=== PATIENT | female | born 1955 | race Caucasian/White ===

== ENCOUNTER 2020-06-15 06:39 | Outpatient (NON) | payer OTHER, SELFPAY ==
[2020-06-16 14:56] LABS: SARS-CoV-2 RNA PCR Positive
== END 2020-06-15 06:40 ==
LOC: ANHCOVIDDT 06:53
PROVIDERS: PCP Nurse Practitioner Family; Visit Provider Family Medicine
DX: U07.1 COVID-19 (principal)
CPT/HCPCS: 87635; C9803; U0003

== ENCOUNTER → 2020-07-13 13:33 | Outpatient (CLI) | payer OTHER, SELFPAY ==
--- NOTE | ~2020-07-13 | MM_ITS ---
EXAMINATION: MM screening sophie BI w chente HISTORY: Screening TECHNIQUE: Craniocaudal and mediolateral oblique 3-D tomosynthesis images were obtained and synthetic 2-D images were generated. CAD analysis was submitted and interpreted. COMPARISON: Comparison to multiple prior studies sequentially, with oldest reviewed study dated 08/2013. BREAST PARENCHYMAL COMPOSITION: There are scattered areas of fibroglandular density. FINDINGS: There is no evidence of suspicious mass, calcification, or architectural distortion to sugg est malignancy in either breast. There has been no suspicious interval change. IMPRESSION: 1. No mammographic evidence of malignancy. 2. Recommend routine screening mammography in one year. BI-RADS Category 1: Negative Reviewed, dictated and finalized at location A. MAKER
== END ==
PROVIDERS: PCP Nurse Practitioner Family; Visit Provider Nurse Practitioner Family
DX: Z12.31 Encounter for screening mammogram for malignant neoplasm of breast (principal)
CPT/HCPCS: 77063; 77067

== ENCOUNTER → 2021-06-01 13:42 | Outpatient (CLI) | payer MEDICARE, OTHER, SELFPAY ==
--- NOTE | ~2021-06-01 | CT_ITS ---
EXAMINATION: CT abdomen pelvis wo con DATE: 06/01/2021 13:57 INDICATION: Abdominal pain TECHNIQUE: Computed tomography (CT) of the abdomen and pelvis was performed without intravenous contr ast. The dose-length product (DLP) was 607.32 mGy-cm. Automated exposure control and iterative recons truction technique were employed. COMPARISON: None FINDINGS: Calcified nodules of the visualized lung bases are consistent with old granulomatous diseas e. The heart size is normal. A pacemaker lead ends in the right ventricle. Punctate calcifications in otherwise normal appearing liver and spleen likely represent healed granulomatous disease. The pancr eas, gallbladder, and adrenal glands are normal. The kidneys are unremarkable. There is calcified ath erosclerosis of the aorta and many of the other arteries. There is a 2.4 x 1.9 cm calcified mass in t he right mid abdomen adjacent to the cecum which abuts the medial aspect of the ascending colon just above the ileocecal valve. There appears to be surrounding desmoplastic reaction. There is mild lumba r spondylosis. IMPRESSION: 1. 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 Reviewed, dictated and finalized at location A. IMPRESSION: 1. Calcified mass of the right mid abdomen adjacent to the cecum, consistent wi th carcinoid versus sclerosing mesenteritis.
== END ==
PROVIDERS: PCP Nurse Practitioner Family; Visit Provider Nurse Practitioner Family
DX: R10.9 Unspecified abdominal pain (principal)
CPT/HCPCS: 74176

== ENCOUNTER 2021-11-15 15:11 | Emergency (ER) | payer MEDICARE, OTHER, SELFPAY ==
[2021-11-15 15:24] VITALS: BP 144/85; PULSE 78; RESP 18; TEMP 36.9; O2SAT 98
--- NOTE | 2021-11-15 15:25 | ED.EAR ---
HPI - Ear Problem General Chief complaint: Ear Stated complaint: rt ear pain Time Seen by Provider: 11/15/21 15:25 Source: patient Mode of arrival: ambulatory Limitations: no limitations History of Present Illness HPI Narrative: Michelle Mitchell is a 66 yo female with a PMH of high cholesterol, pacemaker, who comes with R ear pain and swelling x 1 day-fever, nausea vomiting diarrhea. Had ear infection past she is allergic to all penicillins and Keflex Related Data Home Medications Medication Instructions Recorded Confirmed rosuvastatin 10 mg PO DAILY 11/15/21 11/15/21 Allergies Allergy/AdvReac Type Severity Reaction Status Date / Time Penicillins Allergy Unknown RASH Verified 11/15/21 15:24 cephalexin [From Keflex] Allergy Rash Verified 11/15/21 15:25 Review of Systems Review of Systems: CONSTITUTIONAL: Denies fever, chills, sweats. EYES: Denies visual changes, redness, discharge. ENT: Denies rhinorrhea, congestion, sore throat, right otalgia. CARDIOVASCULAR: Denies chest pain, palpitations, edema. RESPIRATORY: Denies dyspnea, wheezing, cough GASTROINTESTINAL: Denies abdominal pain, nausea, vomiting, diarrhea. GENITOURINARY: Denies dysuria, hematuria, abnormal discharge SKIN: Denies rash or itching. NEUROLOGIC: Denies numbness, or focal weakness. PSYCHIATRIC: Denies anxiety or depression. [facility] Past Medical History Medical History (Updated 11/15/21 @ 15:36 by Shira Palmer CNP) Complete heart block High cholesterol Surgical History Surgical History (Updated 11/15/21 @ 15:31 by Shira Palmer CNP) History of permanent cardiac pacemaker placement Social History Social History (Updated 11/15/21 @ 15:32 by Shira Palmer CNP) Smoking status: Never smoker Alcohol intake: never Comments At time of signature, I agree with nursing past medical, surgical, social and family history. There is no relevant family history pertinent to the presenting complaint. Exam Narrative: GENERAL: This is a well-nourished, well-developed patient, in mild distress. HEAD: normocephalic, atraumatic. EYES: Sclera clear/white. Vision is grossly intact. EARS: External ears normal, right ear canal appears tender and erythematous. No drainage hearing grossly intact. NOSE: External nose normal without nasal discharge, nares without redness, no rhinorrhea. THROAT: Mucous membranes moist, NECK: Neck supple, non-tender CARDIOVASCULAR: Regular rate and rhythm without murmurs, gallops, or rubs. RESPIRATORY: Clear to auscultation. Breath sounds equal bilaterally. No wheezes, rales, or rhonchi. GASTROINTESTINAL: Abdomen soft, SKIN: warm, intact with no suspicious lesions or rash, good texture and turgor. NEURO: awake, alert, and oriented to person, place and time. There were no obvious focal neurologic abnormalities. Steady gait EXTREMITIES: Normal range of motion. BACK: Nontender without deformity Course Course Emergency Course: Patient comes with right ear canal pain Started on polymyxin eardrops Level of Care: Express Care Visit Vital Signs Vital signs: Vital Signs Temperature 98.5 F 11/15/21 15:24 Pulse Rate 78 11/15/21 15:24 Respiratory Rate 18 11/15/21 15:24 Blood Pressure 144/85 H 11/15/21 15:24 Pulse Oximetry 98 11/15/21 15:24 Temperature 98.5 F 11/15/21 15:28 Pulse Rate 78 11/15/21 15:28 Respiratory Rate 18 11/15/21 15:28 Blood Pressure 144/85 H 11/15/21 15:28 Pulse Oximetry 98 11/15/21 15:28 Medical Decision Making Differential Diagnosis Differential Diagnosis: Has media versus otitis externa versus eustachian tube dysfunction Vital Signs Vital Signs: Vital Signs Temperature 98.5 F 11/15/21 15:24 Pulse Rate 78 11/15/21 15:24 Respiratory Rate 18 11/15/21 15:24 Blood Pressure 144/85 H 11/15/21 15:24 Pulse Oximetry 98 11/15/21 15:24 Temperature 98.5 F 11/15/21 15:28 Pulse Rate 78 11/15/21 15:28 Respiratory Rate 18
[2021-11-15 15:28] VITALS: BP 144/85; PULSE 78; RESP 18; TEMP 36.9; O2SAT 98
== END 2021-11-15 15:43 | disposition home or self-care (01) ==
PROVIDERS: Emergency Provider Nurse Practitioner; PCP Nurse Practitioner Family
DX: H60.311 Diffuse otitis externa, right ear (principal); E78.00 Pure hypercholesterolemia, unspecified; Z95.0 Presence of cardiac pacemaker
CPT/HCPCS: 99213; G0463

== ENCOUNTER 2022-09-09 08:15 | Emergency (ER) | payer MEDICARE, OTHER, SELFPAY ==
--- NOTE | 2022-09-09 08:18 | ED.GENADULT ---
HPI - General Adult General Chief complaint: Ear Stated complaint: foreign object in rt ear Time Seen by Provider: 09/09/22 08:18 Source: patient Mode of arrival: ambulatory Limitations: no limitations History of Present Illness HPI narrative: 67-year-old female patient presents to the [facility] with complaints of foreign body to the right ear. Patient states she was using a Q-tip to the right ear yesterday and when she pulled out the Q-tip the cot not the end of the Q-tip was gone. Patient states she does have some discomfort to the right ear but denies any actual pain at this time. Related Data Home Medications Medication Instructions Recorded Confirmed rosuvastatin 10 mg tablet 10 mg PO DAILY 11/15/21 11/15/21 Allergies Allergy/AdvReac Type Severity Reaction Status Date / Time Penicillins Allergy Unknown RASH Verified 09/09/22 08:28 cephalexin [From Keflex] Allergy Rash Verified 09/09/22 08:28 Review of Systems Review of Systems: CONSTITUTIONAL: Denies fever, chills, or sweats. EYES: Denies visual changes, redness, or discharge. ENT: Denies rhinorrhea, congestion, sore throat, Positive right otalgia. CARDIOVASCULAR: Denies chest pain, palpitations, or edema. RESPIRATORY: Denies cough or dyspnea. GASTROINTESTINAL: Denies abdominal pain, nausea, vomiting, or diarrhea. GENITOURINARY: Denies dysuria or hematuria. SKIN: Denies rash or itching. MUSCULOSKELETAL: Denies back pain, joint pain, or myalgia. NEUROLOGIC: Denies headache, numbness, or weakness. PSYCHIATRIC: Denies anxiety or depression. PMF[facility] Past Medical History Medical History Complete heart block High cholesterol Surgical History Surgical History History of permanent cardiac pacemaker placement Social History Social History Smoking status: Never smoker Alcohol intake: never Comments At the time of my signature I agree with nursing past medical history, surgical, social, and family history. There is no relevant family history pertinent to the presenting complaint. Exam Narrative: GENERAL: Well-appearing, well-nourished, and in no acute distress. HEAD: Normocephalic, atraumatic. EYES: PERRLA and EOMI. ENT: Nares clear, no rhinorrhea or epistaxis. Mucous membranes moist. small white foreign body noted to the right canal. The canal is very narrow and hard to visualized with the otoscope. NECK: Supple. No lymphadenopathy CHEST: Clear to auscultation. No respiratory distress. HEART: Regular rate and rhythm. No murmur heard. Normal peripheral pulses. ABDOMEN: Soft, nontender, nondistended, normal active bowel sounds. EXTREMITIES: Normal range of motion. No edema. SKIN: Warm, dry, no rash. NEURO: No focal deficits. Alert and oriented x3. Course Course Level of Care: Express Care Visit Vital Signs Vital signs: Vital Signs Temperature 36.7 C 09/09/22 08:28 Pulse Rate 80 09/09/22 08:28 Respiratory Rate 18 09/09/22 08:28 Blood Pressure 144/78 H 09/09/22 08:28 Pulse Oximetry 98 09/09/22 08:28 Oxygen Delivery Room Air 09/09/22 08:28 Temperature 36.7 C 09/09/22 08:28 Pulse Rate 80 09/09/22 08:28 Respiratory Rate 18 09/09/22 08:28 Blood Pressure 144/78 H 09/09/22 08:28 Pulse Oximetry 98 09/09/22 08:28 Oxygen Delivery Room Air 09/09/22 08:28 Vital signs reviewed The patient has been informed that they may have pre-hypertension or Hypertension based on a BP reading in the department. I recommend that the patient call the primary care provider listed on their discharge instructions or a physician of their choice this week to arrange follow up for further evaluation of possible pre-hypertension or Hypertension Procedures FB Removal Ear Foreign Body #1: Foreign Body Removal Date: 09/09/22 Foreign Body Removal Time: 08:3
[2022-09-09 08:28] VITALS: BP 144/78; PULSE 80; RESP 18; TEMP 36.7; O2SAT 98
== END 2022-09-09 08:45 | disposition home or self-care (01) ==
PROVIDERS: Emergency Provider Nurse Practitioner Family; PCP Nurse Practitioner Family
DX: T16.1XXA Foreign body in right ear, initial encounter (principal); X58.XXXA Exposure to other specified factors, initial encounter; E78.00 Pure hypercholesterolemia, unspecified; Z95.0 Presence of cardiac pacemaker
CPT/HCPCS: 99212; G0463

== ENCOUNTER → 2022-09-11 12:11 | Outpatient (CLI) | payer MEDICARE, OTHER, SELFPAY ==
--- NOTE | ~2022-09-11 | MM_ITS ---
EXAMINATION: MM screening sophie BI w chente HISTORY: Screening mammogram TECHNIQUE: Craniocaudal and mediolateral oblique 3-D tomosynthesis images were obtained and synthetic 2-D images were generated. CAD analysis was submitted and interpreted. COMPARISON: 07/13/2020, 07/06/2019, 05/23/2018 bilateral screening mammogram examinations BREAST PARENCHYMAL COMPOSITION: There are scattered areas of fibroglandular density. FINDINGS: There is no evidence of suspicious mass, calcification, or architectural distortion to sugg est malignancy in either breast. There has been no suspicious interval change. IMPRESSION: 1. No mammographic evidence of malignancy. 2. Recommend routine screening mammography in one year. BI-RADS Category 1: Negative Reviewed, dictated and finalized at location A. NG SUPERVISOR
--- NOTE | ~2022-09-11 | DEXA_ITS ---
Bone Density Report Name: SUZETTE PARKS Age: 67 Sex: Female Ethnicity: White Date of : 1955 Indication: postmenopausal; screening for osteoporosis; height loss; Referring Provider: Nanci, Kamla Arriaga Study: Bone densitometry was performed. Exam Date: September 11, 2022 Accession number: [id number] Bone Density: Region BMD T-score Z-score Classification AP Spine (L1-L4) 1.093 0.4 2.3 Normal Femoral Neck (Left) 0.763 -0.8 0.9 Normal Total Hip (Left) 0.899 -0.3 1.0 Normal Femoral Neck (Right) 0.752 -0.9 0.8 Normal Total Hip (Right) 0.858 -0.7 0.7 Normal Total Hip Mean 0.879 -0.5 0.9 Normal World Health Organization criteria for BMD impression classify patients as: Normal (T-score at or above -1.0), Osteopenia (T-score between -1.0 and -2.5), or Osteoporosis (T-score at or below -2.5). 10-year Fracture Risk: FRAX not reported because: All T-scores for Spine Total, Hip Total, Femoral Neck at or above -1.0 Previous Exams: Region Exam Age BMD T-score BMD Change BMD Change Date g/cm2 vs Baseline vs Previous AP Spine(L1-L4) 09/11/2022 67 1.093 0.4 -0.037* 0.062* 07/31/2019 64 1.030 -0.2 -0.099* -0.047* 03/14/2015 59 1.077 0.3 -0.052* 0.011 01/23/2012 56 1.066 0.2 -0.063* -0.063* 09/17/2008 53 1.129 0.7 Total Hip(Left) 09/11/2022 67 0.899 -0.3 -0.035* -0.023 07/31/2019 64 0.923 -0.2 -0.011 -0.067* 03/14/2015 59 0.990 0.4 0.056* -0.005 01/23/2012 56 0.995 0.4 0.061* 0.061* 09/17/2008 53 0.934 -0.1 Total Hip(Right) 09/11/2022 67 0.858 -0.7 -0.100* -0.018 07/31/2019 64 0.876 -0.5 -0.082* -0.063* 03/14/2015 59 0.939 0.0 -0.020 -0.041* 01/23/2012 56 0.979 0.3 0.021 0.021 09/17/2008 53 0.958 0.1 *Denotes significance at 95% confidence level, LSC for AP Spine = 0.022 g/cm2, LSC for Total Hip = 0.027 g/cm2 Clinical Information Provided by Patient: Has used the following medications: Vitamin D, Calcium Patient maximum height was 62 Menopause Age: 50 No regular weight bearing exercise Drinks caffeinated beverages Onset of menses at age 12 Number of children 3 Impression: The patient has normal bone mass. No significant bone loss was observed. Discussion:
== END ==
PROVIDERS: PCP Nurse Practitioner Family; Visit Provider Nurse Practitioner Family
DX: Z12.31 Encounter for screening mammogram for malignant neoplasm of breast (principal); Z78.0 Asymptomatic menopausal state
CPT/HCPCS: 77063; 77067; 77080

== ENCOUNTER 2023-07-11 09:09 | Emergency (ER) | payer MEDICARE, OTHER, SELFPAY ==
[2023-07-11 09:20] VITALS: BP 121/68; PULSE 93; RESP 18; TEMP 36.3; O2SAT 97
--- NOTE | 2023-07-11 09:43 | ED.EAR ---
HPI - Ear Problem General Chief complaint: Ear Stated complaint: Rt Ear Irritation Time Seen by Provider: 07/11/23 09:32 Source: patient and RN notes reviewed Mode of arrival: ambulatory Limitations: no limitations History of Present Illness HPI Narrative: Patient presents today complaining of a red, swollen, and painful right ear since yesterday with chills and fever up to 102 at 3:00 a.m. this morning. She also reports that she is unable to hear from the right ear. She does wear hearing aids but is unable to place it. Currently rates her pain 5/10 and has been taking Tylenol and ibuprofen with some relief. Related Data Home Medications Medication Instructions Recorded Confirmed rosuvastatin 10 mg tablet 10 mg PO DAILY 11/15/21 07/11/23 lisinopril 10 mg tablet 10 mg PO DAILY 07/11/23 07/11/23 Allergies Allergy/AdvReac Type Severity Reaction Status Date / Time Penicillins Allergy Unknown RASH Verified 07/11/23 09:24 cephalexin [From Keflex] Allergy Rash Verified 07/11/23 09:24 Review of Systems Review of Systems: CONSTITUTIONAL: Denies body aches, or sweats.+ fever, chills EYES: Denies visual changes, redness, or discharge. ENT: Denies rhinorrhea, congestion, sore throat. + right ear pain and swelling CARDIOVASCULAR: Denies chest pain, palpitations, or edema. RESPIRATORY: Denies cough or dyspnea. GASTROINTESTINAL: Denies abdominal pain, nausea, vomiting, or diarrhea. GENITOURINARY: Denies dysuria or hematuria. SKIN: Denies rash, itching, or wounds. MUSCULOSKELETAL: Denies back pain, joint pain, or myalgia. NEUROLOGIC: Denies headache, numbness, tingling, or weakness. PSYCH: Denies depression or anxiety. [facility], 1928–[facility] Past Medical History Medical History Complete heart block High cholesterol Surgical History Surgical History History of permanent cardiac pacemaker placement Social History Social History Smoking status: Never smoker Alcohol intake: never Comments At time of signature, I have reviewed and agree with nursing past medical, surgical, social and family history unless otherwise noted. Please see nursing chart for further information. There is no relevant family history pertinent to the presenting complaint Exam Narrative: GENERAL: Well-appearing, well-nourished, and in no acute distress. HEAD: Normocephalic, atraumatic. EYES: EOMI. No redness or drainage. Conjunctivae normal. ENT: Mucous membranes pink and moist. Right external ear is moderately swollen and erythematous. This erythema extends slightly anteriorly and downward. The ear is somewhat tender to palpation. The canal is swollen shut. No erythema or edema over the mastoid process. No tenderness to the mastoid process. NECK: Normal AROM. No lymphadenopathy. Neck is nontender. CHEST: No respiratory distress. EXTREMITIES: Normal range of motion. No edema. SKIN: Warm, dry, no rash. Capillary refill normal. Normal skin turgor. NEURO: No focal deficits. Alert and oriented x3. Gait steady. PSYCH: Normal affect. No signs of depression or anxiety. Course Course Level of Care: Express Care Visit Vital Signs Vital signs: Vital Signs Temperature 97.3 F L 07/11/23 09:20 Pulse Rate 93 07/11/23 09:20 Respiratory Rate 18 07/11/23 09:20 Blood Pressure 121/68 07/11/23 09:20 Pulse Oximetry 97 07/11/23 09:20 Oxygen Delivery Room Air 07/11/23 09:20 Temperature 97.3 F L 07/11/23 09:20 Pulse Rate 93 07/11/23 09:20 Respiratory Rate 18 07/11/23 09:20 Blood Pressure 121/68 07/11/23 09:20 Pulse Oximetry 97 07/11/23 09:20 Oxygen Delivery Room Air 07/11/23 09:20 Reviewed Medical Decision Making MDM Narrative Medical decision making narrative: Patient will be treated with a course of clindamycin. Agrees w
== END 2023-07-11 09:52 | disposition home or self-care (01) ==
PROVIDERS: Emergency Provider Nurse Practitioner; PCP Nurse Practitioner Family
DX: H60.11 Cellulitis of right external ear (principal); E78.00 Pure hypercholesterolemia, unspecified; Z95.0 Presence of cardiac pacemaker; Z86.79 Personal history of other diseases of the circulatory system
CPT/HCPCS: 99213; G0463

== ENCOUNTER 2023-10-28 11:35 | Outpatient (CLI) | payer MEDICARE, OTHER, SELFPAY ==
--- NOTE | ~2023-10-28 | CT_ITS ---
EXAMINATION: CT brain wo con DATE: 10/28/2023 11:56 INDICATION: Diplopia. TECHNIQUE: Computed tomography (CT) of the head was performed without intravenous contrast. The mA wa s adjusted according to patient size. Iterative reconstruction technique was employed. The dose-lengt h product was 599.57 mGy-cm. COMPARISON: None FINDINGS: There is no intracranial hemorrhage, acute infarction, or abnormal intracranial mass lesion . There are scattered areas of low attenuation in the cerebral white matter, which is within normal l imits for the patient's age. The ventricles are normal in size. There is mild mucosal thickening in t he ethmoid sinuses. Right inferior rectus muscle is enlarged. There are trace mastoid effusions. IMPRESSION: 1. Enlarged right inferior rectus muscle. The differential diagnosis includes thyroid ophthalmopathy and idiopathic orbital inflammation. Reviewed, dictated and finalized at location E. IMPRESSION: 1. Enlarged right inferior rectus muscle. The differential diagnosis includes t hyroid ophthalmopathy and idiopathic orbital inflammation.
== END 2023-10-28 11:36 ==
LOC: MICIMG 11:39
PROVIDERS: Visit Provider Nurse Practitioner Family
DX: H53.2 Diplopia (principal); R93.0 Abnormal findings on diagnostic imaging of skull and head, not elsewhere classified
CPT/HCPCS: 70450

== ENCOUNTER 2024-02-21 14:51 | Outpatient (CLI) | payer MEDICARE, OTHER, SELFPAY ==
--- NOTE | ~2024-02-21 | MM_ITS ---
EXAMINATION: MM screening sophie BI w chente HISTORY: Screening TECHNIQUE: Craniocaudal and mediolateral oblique 3-D tomosynthesis images were obtained and synthetic 2-D images were generated. CAD analysis was submitted and interpreted. COMPARISON: Comparison to multiple prior studies sequentially, with oldest reviewed study dated 03/19. BREAST PARENCHYMAL COMPOSITION: Not dense: There are scattered areas of fibroglandular density. FINDINGS: There is no evidence of suspicious mass, calcification, or architectural distortion to sugg est malignancy in either breast. There has been no suspicious interval change. IMPRESSION: 1. No mammographic evidence of malignancy. 2. Recommend routine screening mammography in one year. BI-RADS Category 1: Negative Reviewed, dictated and finalized at location B.
== END 2024-02-21 14:52 ==
LOC: MICIMG 14:52
PROVIDERS: PCP Nurse Practitioner Family; Visit Provider Nurse Practitioner Family
DX: Z12.31 Encounter for screening mammogram for malignant neoplasm of breast (principal)
CPT/HCPCS: 77063; 77067

== ENCOUNTER 2025-02-22 13:33 | Outpatient (CLI) | payer MEDICARE, SELFPAY ==
--- NOTE | ~2025-02-22 | MM_ITS ---
EXAMINATION: MM screening sophie BI w chente HISTORY: Screening TECHNIQUE: Craniocaudal and mediolateral oblique 3-D tomosynthesis images were obtained and synthetic 2-D images were generated. CAD analysis was submitted and interpreted. COMPARISON: Comparison to multiple prior studies sequentially, with oldest reviewed study dated 03/19. BREAST PARENCHYMAL COMPOSITION: There are scattered areas of fibroglandular density. FINDINGS: There is no evidence of suspicious mass, calcification, or architectural distortion to sug gest malignancy in either breast. IMPRESSION: 1. No mammographic evidence of malignancy. 2. Recommend routine screening mammography in one year. BI-RADS Category 1: Negative Reviewed, dictated and finalized at location B.
== END 2025-02-22 13:34 | disposition home or self-care (01) ==
LOC: MICIMG 13:35
PROVIDERS: Visit Provider Nurse Practitioner Family
DX: Z12.31 Encounter for screening mammogram for malignant neoplasm of breast (principal)
CPT/HCPCS: 77063; 77067

== ENCOUNTER 2025-03-29 12:54 | Outpatient (CLI) | payer MEDICARE, OTHER, SELFPAY ==
--- NOTE | ~2025-03-29 | US_ITS ---
EXAMINATION: US thyroid DATE: 03/29/2025 13:12 INDICATION: Goiter. Hyperthyroidism TECHNIQUE: Multiple ultrasound images of the thyroid were obtained. COMPARISON: None. FINDINGS: The right thyroid lobe measures 4.7 x 2.0 x 1.5 cm. The left thyroid lobe measures 4.7 x 1.5 x 1.3 cm. 1.1 cm solid round hypoechoic nodule with ill- defined margins and without echogenic foci. (TI-RADS 4, moderately suspicious , FNA if >=1.5 cm, annual followup is >=1 cm). There is a second 1.3 cm Solid wider than tall hypoechoic nodule with smooth margins and without echogenic foci, also TI RADS 4 at the medial right thyroid lobe. There are couple additional TI RADS 4 nodules measuring 3 mm and 4 mm in the left thyroid lobe. IMPRESSION: 1. A few bilateral TI RADS 4 nodules, the largest measuring 1.3 similar which do not be criteria for biopsy but for which annual ultrasound follow-up would be recommended. Reviewed, dictated and finalized at location A. IMPRESSION: 1. A few bilateral TI RADS 4 nodules, the largest measuring 1.3 similar which d o not be criteria for biopsy but for which annual ultrasound follow-up would be recommended.
== END 2025-03-29 12:55 | disposition home or self-care (01) ==
LOC: MICIMG 12:56
PROVIDERS: PCP Nurse Practitioner Family; Visit Provider Internal Medicine
DX: E04.2 Nontoxic multinodular goiter (principal); E05.90 Thyrotoxicosis, unspecified without thyrotoxic crisis or storm
CPT/HCPCS: 76536

== ENCOUNTER 2025-05-31 10:46 | Outpatient (CLI) | payer MEDICARE, OTHER, SELFPAY ==
--- NOTE | ~2025-05-31 | CT_ITS ---
EXAMINATION: CT orbit BI w con DATE: 05/31/2025 11:31 INDICATION: TECHNIQUE: Computed tomography (CT) of the orbits was performed with 100 mL Omnipaque-350 intravenous contrast. Sagittal and coronal reconstructions were created. Automated exposure control and iterative reconstruction technique were employed. The dose-length product was 175.27 mGy-cm. COMPARISON: None FINDINGS: There is mild thickening and decreased attenuation of the bilateral inferior rectus muscles, right slightly more prominent than left and minimally of the bilateral medial rectus muscles which could be seen in setting of thyroid associated orbitopathy. There is borderline proptosis and bilateral lacrimal gland prolapse. No intraorbital masses. Visualized portions of the brain are unremarkable with no abnormally enhancing lesions identified bilateral mastoid air cells, middle ear cavities and paranasal sinuses are all clear. Impacted and coarse instrumented posterior most left maxillary molar with likely dental caries. IMPRESSION: 1. 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 Reviewed, dictated and finalized at location A. IMPRESSION: 1. Borderline proptosis and mild bilateral lacrimal gland prolapse likely relat ed to thyroid eye disease with mild thickening and decreased density of the celeste ateral inferior rectus muscles and minimally of the medial rectus muscles.
[2025-05-31 11:15] LABS: Estimated Glomerular Filt Rate 44
== END 2025-05-31 10:47 | disposition home or self-care (01) ==
LOC: MICIMG 10:48
PROVIDERS: PCP Nurse Practitioner Family
DX: R93.89 Abnormal findings on diagnostic imaging of other specified body structures (principal); H05.243 Constant exophthalmos, bilateral; H04.163 Lacrimal gland dislocation, bilateral lacrimal glands; M62.561 Muscle wasting and atrophy, not elsewhere classified, right lower leg; M62.562 Muscle wasting and atrophy, not elsewhere classified, left lower leg
CPT/HCPCS: 70481; Q9967